=== PATIENT | female | born 1965 | race Caucasian/White ===

== ENCOUNTER 2018-05-12 01:06 | Inpatient (IN) | payer OTHER ==
[2018-05-12] MEDS ORDERED: ONDANSETRON 4 MG INJ IV (02:30)
[2018-05-12] MEDS ORDERED: VANCOMYCIN IV PER PHARMACY XX (02:30)
[2018-05-12] MEDS: SOD CHLORIDE 0.9% 1,000 ML IV (02:48)
[2018-05-12] MEDS: CEFTRIAXONE 1 GM/50 ML (PMX) 50 ML IVPB (06:03)
[2018-05-12] MEDS: HYDROCODONE/APAP (5/325) TAB PO ×4 (06:55→20:11)
[2018-05-12] MEDS ORDERED: PENDING SANTYL ORDER FOR WOUND CARE XX ×2 (08:00)
[2018-05-12] MEDS: VANCOMYCIN 1 GM 250 ML IVPB ×2 (08:21→15:46)
[2018-05-12] MEDS ORDERED: ALBUTEROL 0.083% (NEB) 2.5 MG/3 ML AMP HHN (11:30)
[2018-05-12] MEDS: NICOTINE (21 MG/24 HR) PATCH TRANSDERM (12:16)
[2018-05-12 12:34] LABS: TROPONIN-I < 0.012 ng/ml (0.000-0.120)
[2018-05-12 18:40] LABS: TROPONIN-I < 0.012 ng/ml (0.000-0.120)
[2018-05-13] MEDS: VANCOMYCIN 1 GM 250 ML IVPB ×2 (00:08→08:49)
[2018-05-13] MEDS: HYDROCODONE/APAP (5/325) TAB PO ×2 (00:10→10:36)
[2018-05-13 01:10] LABS: TROPONIN-I < 0.012 ng/ml (0.000-0.120)
[2018-05-13] MEDS: SOD CHLORIDE 0.9% 1,000 ML IV ×2 (05:24→16:41)
[2018-05-13] MEDS: PANTOPRAZOLE (EC) 40 MG TAB PO (05:32)
[2018-05-13] MEDS: ACETAMINOPHEN 325 MG TAB PO ×2 (05:33→19:34)
[2018-05-13] MEDS: CEFTRIAXONE 1 GM/50 ML (PMX) 50 ML IVPB (05:37)
[2018-05-13 05:48] LABS: ADD MAN DIFF? NO
[2018-05-13 05:51] LABS: BASOPHILS % 0.3 % (0.0-2.0); EOSINOPHILS # 0.3 10^3/ul (0.0-0.5); EOSINOPHILS % 3.8 % (0.0-7.0); HEMOGLOBIN 11.5 g/dl (12.0-16.0); LYMPHOCYTES # 2.5 10^3/ul (0.8-2.9); LYMPHOCYTES % 35.5 % (15.0-51.0); MEAN CORPUSCULAR HEMOGLOBIN 31.6 pg (29.0-33.0); MEAN CORPUSCULAR HGB CONC 33.8 g/dl (32.0-37.0); MEAN CORPUSCULAR VOLUME 93.4 fl (82.0-101.0); MEAN PLATELET VOLUME 10.5 fl (7.4-10.4); MONOCYTE # 0.5 10^3/ul (0.3-0.9); MONOCYTES % 7.5 % (0.0-11.0); NEUTROPHIL # 3.8 10^3/ul (1.6-7.5); NEUTROPHILS % 52.8 % (39.0-77.0); PLATELET COUNT 192 10^3/UL (140-415); RED BLOOD COUNT 3.64 10^6/ul (4.20-5.40)
[2018-05-13 05:51] LABS: WHITE BLOOD COUNT 7.2 10^3/ul (4.8-10.8)
[2018-05-13 06:15] LABS: HEMOGLOBIN A1C 5.6 % (0-5.9)
[2018-05-13 06:30] LABS: ANION GAP 9 (8-16); BLOOD UREA NITROGEN 6 mg/dl (7-20); CALCIUM 8.3 mg/dl (8.4-10.2); CARBON DIOXIDE 23 mmol/L (21-31); CHLORIDE 111 mmol/L (97-110); CREATININE 0.47 mg/dl (0.44-1.00); GLUCOSE 101 mg/dl (70-220); POTASSIUM 3.8 mmol/L (3.5-5.1); SODIUM 139 mmol/L (135-144)
[2018-05-13 07:44] LABS: VANCOMYCIN,TROUGH 10.7 ug/ml (10.0-20.0)
[2018-05-13] MEDS: NICOTINE (21 MG/24 HR) PATCH TRANSDERM (08:49)
[2018-05-13] MEDS: VANCOMYCIN 1.25 GM in SOD CHLORIDE 0.9% 250 ML IVPB (16:41)
[2018-05-13] MEDS: BISACODYL (EC) 5 MG TAB PO (21:31)
[2018-05-14] MEDS: VANCOMYCIN 1.25 GM in SOD CHLORIDE 0.9% 250 ML IVPB ×3 (00:18→16:47)
[2018-05-14] MEDS: ARTIFICIAL TEARS 15 ML OPH BOTH EYES ×4 (00:18→17:32)
[2018-05-14] MEDS: CEFTRIAXONE 1 GM/50 ML (PMX) 50 ML IVPB (05:25)
[2018-05-14] MEDS: PANTOPRAZOLE (EC) 40 MG TAB PO (05:25)
[2018-05-14 05:49] LABS: ADD MAN DIFF? NO
[2018-05-14 06:05] LABS: BASOPHILS % 0.4 % (0.0-2.0); EOSINOPHILS # 0.3 10^3/ul (0.0-0.5); EOSINOPHILS % 3.6 % (0.0-7.0); HEMATOCRIT 36.9 % (37.0-47.0); LYMPHOCYTES # 2.6 10^3/ul (0.8-2.9); LYMPHOCYTES % 30.4 % (15.0-51.0); MEAN CORPUSCULAR HEMOGLOBIN 32.3 pg (29.0-33.0); MEAN CORPUSCULAR HGB CONC 35.2 g/dl (32.0-37.0); MEAN CORPUSCULAR VOLUME 91.8 fl (82.0-101.0); MEAN PLATELET VOLUME 10.2 fl (7.4-10.4); MONOCYTE # 0.6 10^3/ul (0.3-0.9); MONOCYTES % 6.9 % (0.0-11.0); NEUTROPHILS % 58.5 % (39.0-77.0); PLATELET COUNT 267 10^3/UL (140-415); RED BLOOD COUNT 4.02 10^6/ul (4.20-5.40); RED CELL DISTRIBUTION WIDTH 11.9 % (11.5-14.5)
[2018-05-14 06:05] LABS: WHITE BLOOD COUNT 8.5 10^3/ul (4.8-10.8)
[2018-05-14 06:35] LABS: ANION GAP 12 (8-16); BLOOD UREA NITROGEN 8 mg/dl (7-20); CARBON DIOXIDE 23 mmol/L (21-31); CHLORIDE 109 mmol/L (97-110); CREATININE 0.56 mg/dl (0.44-1.00); GLUCOSE 98 mg/dl (70-220); POTASSIUM 4.1 mmol/L (3.5-5.1); SODIUM 140 mmol/L (135-144)
[2018-05-14] MEDS: NICOTINE (21 MG/24 HR) PATCH TRANSDERM (08:56)
[2018-05-14] MEDS: HYDROCODONE/APAP (5/325) TAB PO (11:04)
[2018-05-14] MEDS: SOD CHLORIDE 0.9% 1,000 ML IV (16:53)
[2018-05-14] MEDS: BISACODYL (EC) 5 MG TAB PO (16:53)
[2018-05-14] MEDS: ACETAMINOPHEN 325 MG TAB PO (20:29)
== END 2018-05-14 21:15 | disposition home or self-care (01) | DRG 601 ==
LOC: PP2 01:06
PROVIDERS: Internal Medicine Nephrology
DX: N61.1 Abscess of the breast and nipple (principal); E66.9 Obesity, unspecified; Z68.35 Body mass index [BMI] 35.0-35.9, adult; J45.909 Unspecified asthma, uncomplicated; F17.200 Nicotine dependence, unspecified, uncomplicated; I10 Essential (primary) hypertension
CPT/HCPCS: 71046; 80048; 80202; 83036; 84484; 85025